=== PATIENT | male | born 1980 | race Caucasian/White ===

== ENCOUNTER 2020-11-19 10:35 | Emergency (ER) | payer OTHER ==
[~2020-11-19] VITALS: Ht 180.3 cm; Wt 80.7 kg
[2020-11-19] MEDS ORDERED: PEPCID20 MG PO (14:56)
[2020-11-19] MEDS ORDERED: LEVSIN/SL0.125 MG SL (14:56)
[2020-11-19] MEDS ORDERED: KETO10TA2 PO (15:18)
== END 2020-11-19 15:38 | disposition home or self-care (01) ==
LOC: ER 10:35
DX: K80.80 Other cholelithiasis without obstruction (principal); R10.13 Epigastric pain; Z03.818 Encounter for observation for suspected exposure to other biological agents ruled out

== ENCOUNTER 2021-11-21 14:59 | Emergency (ER) | payer OTHER ==
[~2021-11-21] VITALS: Ht 180.3 cm; Wt 89.4 kg
[~2021-11-21 14:59] MED LIST: KETO10TA2 PO; LEVSIN/SL0.125 MG SL; PEPCID20 MG PO
[2021-11-21] MEDS ORDERED: DICLOFENAC SODI75 MG PO (16:56)
[2021-11-21] MEDS ORDERED: NORFLEX100MG PO (16:56)
== END 2021-11-21 16:59 | disposition home or self-care (01) ==
LOC: ER 14:59
DX: M54.9 Dorsalgia, unspecified (principal)